=== PATIENT | female | born 2005 | race Two or more races ===

== ENCOUNTER 2024-09-15 09:24 | Observation (INO) | payer MEDICAID, SELFPAY ==
[2024-09-15 09:35] VITALS: BP 125/75; PULSE 84; PULSE 85; O2SAT 98
[2024-09-15 09:42] VITALS: BMI 31.1
--- NOTE | 2024-09-15 09:52 | XR_ITS ---
Examination: Complete OB ultrasound greater than 14 weeks Date and time of exam: September 15, 2024 1117 hours INDICATIONS: Decreased movement beginning 2 days ago Findings: Viable intrauterine single fetus with single amniotic sac presentation breech Cardiac motion 144 BPM Placenta posterior grade 0 Clinical consideration 3 vessel seen Amniotic fluid index 11.8 cm spine maternal right Cervix 5.4 cm Ovaries obscured by bowel gas. Composite estimated gestational age based on BPD, head circumference, abdominal circumference, femur length is 22 weeks 3 days Estimated weight 540 g. Survey of intracranial anatomy, spinal anatomy, abdominal anatomy, four-chamber heart performed with no abnormalities identified. Impression: Viable intrauterine gestation breech presentation.
== END 2024-09-15 12:21 | disposition home or self-care (01) ==
PROVIDERS: Admitting Provider Obstetrics & Gynecology; PCP Family Medicine; Visit Provider Obstetrics & Gynecology
DX: O36.8120 Decreased fetal movements, second trimester, not applicable or unspecified (principal); O32.1XX0 Maternal care for breech presentation, not applicable or unspecified; Z3A.22 22 weeks gestation of pregnancy
CPT/HCPCS: 59025; 59899; 76805

== ENCOUNTER 2024-11-11 21:56 | Observation (INO) | payer MEDICAID, SELFPAY ==
[2024-11-11 22:05] VITALS: BP 124/58; PULSE 107; RESP 18; RESP 99; TEMP 36.9
[2024-11-11 22:06] VITALS: BMI 34.0
[2024-11-11 22:09] VITALS: BP 124/58; PULSE 107
== END 2024-11-11 22:40 | disposition home or self-care (01) ==
PROVIDERS: Admitting Provider Obstetrics & Gynecology; Visit Provider Obstetrics & Gynecology
DX: O26.893 Other specified pregnancy related conditions, third trimester (principal); R10.30 Lower abdominal pain, unspecified; Z3A.30 30 weeks gestation of pregnancy
CPT/HCPCS: 59025; G0378

== ENCOUNTER 2025-03-01 03:11 | Emergency (ER) | payer MEDICAID, SELFPAY ==
[2025-03-01 03:13] VITALS: BP 120/75; PULSE 89; RESP 18; TEMP 36.6; O2SAT 100
--- NOTE | 2025-03-01 03:36 | EKG_ITS ---
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
[2025-03-01 03:46] VITALS: BP 107/60; PULSE 67; RESP 20; O2SAT 100
[2025-03-01 03:50] VITALS: BMI 30.2
--- NOTE | 2025-03-01 04:38 | PD.EDADULT ---
ED General RME/HPI General Chief complaint: General Adult/Misc Complain Stated complaint: CHEST AREA PAIN Time Seen by Provider: 03/01/25 03:48 Arrival date/time: 03/01/25 03:11 RME / HPI RME / HPI narrative: Dr. Mallory?s Main ED Evaluation: 20yo female with a history of DMI BIBA from home presents to the ED for a chief complaint of chest pain. Patient states she woke up having crushing diffuse chest pain. No radiation or migration. Patient denies having any cough, fever, chills, sweating, shortness of breath or any other associated symptoms. NKA. Related Data Home Medications ?Medication ?Instructions ?Recorded ?Confirmed Insulin Aspart * (NOVOLOG *) 18 unit subcut BID #0 units 09/30/14 09/29/19 aspirin 81 mg capsule 81 mg DAILY 09/15/24 09/15/24 [id number] 1 mg 2 tab PO DAILY 09/15/24 09/15/24 tablet Allergies Allergy/AdvReac Type Severity Reaction Status Date / Time No Known Allergies Allergy Verified 11/11/24 22:05 Review of Systems Review of Systems Systems Reviewed: All systems reviewed, normal except as documented ED Exam Narrative Physical exam: GENERAL APPEARANCE: alert and oriented x 4, well-developed, well-nourished, no acute distress VITALS: All vitals were reviewed and the pulse ox is 100% on room air, which is normal according to my interpretation. HEENT: Normocephalic, atraumatic; pupils equal, round, reactive to light; EOMI; mucous membranes pink, moist; oropharynx clear NECK: Supple LUNGS: CTABL; no wheezes, no rales, no rhonchi HEART: Regular rate, regular rhythm; normal S1, S2; no murmurs ABDOMEN: non distended; normal BS; soft, no tenderness, no guarding, no rebound; no masses, no organomegaly, no hernia BACK: no CVA tenderness EXTREMITIES: atraumatic; no edema NEUROLOGIC: awake; alert and oriented x4; cranial nerves II-XII grossly intact; no focal sensory or motor deficits PSYCHIATRIC: appropriate mood and affect SKIN: warm, dry, normal color; no rashes Course Quality Measures none Orders Category Date Time Status EKG (ED ONLY) *Do not use* NOW Care 03/01/25 03:36 Completed EKG (ED Only) Stat Exams 03/01/25 03:36 Ordered CBC Stat Lab 03/01/25 05:09 Received CMP [Comprehensive Metabolic Panel] Stat Lab 03/01/25 05:09 Received D-Dimer Stat Lab 03/01/25 05:09 Completed Troponin I Stat Lab 03/01/25 05:09 Received Acetaminophen Tab [Tylenol ES Tab] Med 03/01/25 04:49 Discontinued 1,000 mg PO X1 ONE Ibuprofen Tab [Motrin Tab] Med 03/01/25 04:48 Discontinued 600 mg PO X1 ONE Vital Signs Vital signs: Vital Signs Temperature 97.8 F 03/01/25 03:13 Pulse Rate 89 03/01/25 03:13 Respiratory Rate 18 03/01/25 03:13 Blood Pressure 120/75 03/01/25 03:13 Pulse Oximetry (%) 100 03/01/25 03:13 Oxygen Delivery Method Room Air 03/01/25 03:13 Discharge Plan Prescriptions/Referrals Prescriptions/Med Rec: No Action Insulin Aspart * (NOVOLOG *) 100 U/ML cartridge 18 unit Sub-Q BID Qty: 0 1 mg Tablet 2 tab PO DAILY aspirin 81 mg Capsule 81 mg DAILY Problem List Clinical Impression: Chest pain Patient/Caregiver Discharge Instructions Print Language: Japanese [facility] Narrative [facility] hospital course: Scribe Attestation: 03/01/25 - Liss Alvarado am scribing for and in the presence of Dr. Mallory. Wells criteria is 1.5 points, indicating the patient is at low risk. D-dimer ordered to r/o PE. Clinical Information Provided by patient Medical Records Reviewed [facility] (Per chart review, patient was seen here on 07/22/24 for diabetes mellitus.) Meds/Rx Considered, not Ordered None Labs/Rad/Tests considered, not Ordered None Chronic Illness/Social Conditions Add or document further as needed: History of DMI EKG EKG Interpretation narrative: EKG done at 0355, NSR, rate of 68, normal axis, no ectopy, no acute ischemia, according to my interpretation. Lab Interpretation Labs: interpreted by me (pending at sign out.) Imaging Imaging interpretation: none Medication Administration(s) Medication Administration History Discontinued Medications Acetaminophen (Acetaminophen 500 Mg Tablet) 1,000 mg PO X1 ONE Stop: 03/01/25 04:50 Last Admin: 03/01/25 05:02 Dose: Not Given Documented By: BD Non-Admin Reason: Patient Refused Ibuprofen (Ibuprofen Tab 600 Mg Tablet) 600 mg PO X1 ONE Stop: 03/01/25 04:49 Last Admin: 03/01/25 05:02 Dose: Not Given Documented By: BD Non-Admin Reason: Patient Refused see above Diagnosis Differential diagnosis: PE, pneumonia, pneumothorax Most likely dx, and/or detailed dx discussion: chest pain Dispositon Disposition: other (Signed out to Dr. Altamirano at 0600 pending labs.)
--- NOTE | 2025-03-01 04:57 | PC.NURSE ---
PHARMACY HOLDING MEDS FOR PT NOT DELIVERED 12/2024
--- NOTE | 2025-03-01 05:02 | PC.LAC ---
PT DID NOT WANT TYLENOL OR IBUPROFEN SHE STATED SHE IS NOT USE TO TAKING MEDICATION AND SHE GOT MEDICINE IN AMBULANCE PREFERS NOT TO TAKE MEDICATION
[2025-03-01 05:59] LABS: Basophils # (Auto) 0.1 Thou/mm3 (0.0-0.2); Basophils % (Auto) 1 % (0-2.5); Eosinophils # (Auto) 0.3 Thou/mm3 (0.0-0.5); Eosinophils % (Auto) 3 % (0-10); Hematocrit 33.9 % (36.0-46.0); Hemoglobin 10.9 g/dL (12.0-16.0); Immature Granulocytes % (Auto) 0 % (0-0); Immature Granulocytes Auto 0.03 Thou/mm3 (0.00-0.00); Lymphocytes # (Auto) 2.2 Thou/mm3 (1.0-4.8); Lymphocytes % (Auto) 23 % (10-50); Mean Corpuscular HGB Conc 32.2 g/dl (31.0-37.0); Mean Corpuscular Hemoglobin 25.1 pg (25.0-35.0); Mean Corpuscular Volume 78 fL (80-100); Monocytes # (Auto) 0.8 Thou/mm3 (0.0-0.8); Monocytes % (Auto) 8 % (0-12); Neutrophils # (Auto) 6.4 Thou/mm3 (1.8-7.7); Neutrophils % (Auto) 65 % (37-80); Nucleated Red Blood Cell % 0 /100 WBC (0); Platelet Count 314 Thou/mm3 (140-440); RDW Standard Deviation 52.4 fL (36.4-46.3); Red Blood Count 4.35 Miln/mm3 (4.00-5.20); White Blood Count 9.8 Thou/mm3 (3.6-11.0)
[2025-03-01 06:00] LABS: D-Dimer < 250 ng/mL (<600)
[2025-03-01 06:07] VITALS: BP 108/58; PULSE 76; RESP 20; O2SAT 99
[2025-03-01 06:08] LABS: Alanine Aminotransferase 52 U/L (10-49); Albumin, Serum 4.2 gm/dL (3.5-5.0); Albumin/Globulin Ratio 1.8 (1.2-2.2); Alkaline Phosphatase 87 U/L (46-116); Anion Gap 12 (7-16); Aspartate Amino Transferase 35 U/L (0-34); BUN/Creatinine Ratio 14 Ratio (12-20); Bilirubin,Total 0.3 mg/dL (0.3-1.2); Blood Urea Nitrogen 13 mg/dL (9-23); Calcium 8.7 mg/dL (8.3-10.6); Calcium (Corrected) 8.7 mg/dL (8.5-10.1); Chloride 106 mMol/L (98-107); Creatinine (Component) 0.9 mg/dL (0.6-1.3); Estimated Creatinine Clearance 89.3 mL/min (>60); Globulin 2.3 gm/dL (2.3-3.5); Glucose 306 mg/dL (74-106); Osmolality,Calculated 293 (275-295); Potassium 4.4 mMol/L (3.4-5.1); Sodium 141 mMol/L (136-145); Total Protein 6.5 gm/dL (5.7-8.2); Troponin I < 0.002 ng/mL (0.0-0.045); eGFR > 60 See Note
[2025-03-01 06:10] VITALS: PULSE 75
--- NOTE | 2025-03-01 06:36 | PD.EDADDENDU ---
Emergency Room Addendum Addendum Narrative: 0600: Care assumed from Dr. Mallory, the previous shift emergency physician. Past medical, surgical, social and family history reviewed. Vitals and home medications reviewed. I will assume the care of the patient at this time, pending remainder of labs and final disposition. Please refer to the emergency department record for history and examination from initial visit.? Physical exam by me shows patient under no acute distress at this time. 0630: Patient remains clinically stable throughout the emergency department visit. Re-assessment at the time of disposition demonstrates that the patient is in no acute distress. We reviewed all the results, analysis, and treatment plans. Patient is amenable to discharge. Strict return precautions were outlined. Patient was discharged in stable condition. Diagnosis: - Chest pain Results Objective Laboratory: Laboratory Last Values WBC 9.8 Thou/mm3 (3.6-11.0) 03/01/25 05:09 RBC 4.35 Miln/mm3 (4.00-5.20) 03/01/25 05:09 Hgb 10.9 g/dL (12.0-16.0) L 03/01/25 05:09 Hct 33.9 % (36.0-46.0) L 03/01/25 05:09 MCV 78 fL (80-100) L 03/01/25 05:09 MCH 25.1 pg (25.0-35.0) 03/01/25 05:09 MCHC 32.2 g/dl (31.0-37.0) 03/01/25 05:09 RDW Std Deviation 52.4 fL (36.4-46.3) H 03/01/25 05:09 Plt Count 314 Thou/mm3 (140-440) 03/01/25 05:09 Neut % (Auto) 65 % (37-80) 03/01/25 05:09 Lymph % (Auto) 23 % (10-50) 03/01/25 05:09 [place] % (Auto) 8 % (0-12) 03/01/25 05:09 Eos % (Auto) 3 % (0-10) 03/01/25 05:09 Baso % (Auto) 1 % (0-2.5) 03/01/25 05:09 Neut # (Auto) 6.4 Thou/mm3 (1.8-7.7) 03/01/25 05:09 Lymph # (Auto) 2.2 Thou/mm3 (1.0-4.8) 03/01/25 05:09 [place] # (Auto) 0.8 Thou/mm3 (0.0-0.8) 03/01/25 05:09 Eos # (Auto) 0.3 Thou/mm3 (0.0-0.5) 03/01/25 05:09 Baso # (Auto) 0.1 Thou/mm3 (0.0-0.2) 03/01/25 05:09 Immature Gran # (Auto) 0.03 Thou/mm3 (0.00-0.00) H 03/01/25 05:09 Absolute Nucleated RBC 0.00 Thou/mm3 (0.00-0.00) 03/01/25 05:09 Immature Gran % 0 % (0-0) 03/01/25 05:09 Nucleated RBC % 0 /100 WBC (0) 03/01/25 05:09 D-Dimer < 250 ng/mL (<600) 03/01/25 05:09 Sodium 141 mMol/L (136-145) 03/01/25 05:09 Potassium 4.4 mMol/L (3.4-5.1) 03/01/25 05:09 Chloride 106 mMol/L (98-107) 03/01/25 05:09 Carbon Dioxide 23.0 mMol/L (20.0-31.0) 03/01/25 05:09 Anion Gap 12 (7-16) 03/01/25 05:09 BUN 13 mg/dL (9-23) 03/01/25 05:09 Creatinine 0.9 mg/dL (0.6-1.3) 03/01/25 05:09 Estim Creat Clear Calc 89.3 mL/min (>60) 03/01/25 05:09 eGFR > 60 See Note (60-) 03/01/25 05:09 BUN/Creatinine Ratio 14 Ratio (12-20) 03/01/25 05:09 Glucose 306 mg/dL (74-106) H 03/01/25 05:09 Calculated Osmolality 293 (275-295) 03/01/25 05:09 Calcium 8.7 mg/dL (8.3-10.6) 03/01/25 05:09 Corrected Calcium 8.7 mg/dL (8.5-10.1) 03/01/25 05:09 Total Bilirubin 0.3 mg/dL (0.3-1.2) 03/01/25 05:09 AST 35 U/L (0-34) H 03/01/25 05:09 ALT 52 U/L (10-49) H 03/01/25 05:09 Alkaline Phosphatase 87 U/L (46-116) 03/01/25 05:09 Troponin I < 0.002 ng/mL (0.0-0.045) 03/01/25 05:09 Total Protein 6.5 gm/dL (5.7-8.2) 03/01/25 05:09 Albumin 4.2 gm/dL (3.5-5.0) 03/01/25 05:09 Globulin 2.3 gm/dL (2.3-3.5) 03/01/25 05:09 Albumin/Globulin Ratio 1.8 (1.2-2.2) 03/01/25 05:09
== END 2025-03-01 06:42 | disposition home or self-care (01) ==
PROVIDERS: Emergency Medicine; Emergency Provider Emergency Medicine; PCP Family Medicine
DX: R07.9 Chest pain, unspecified (principal); E10.9 Type 1 diabetes mellitus without complications
CPT/HCPCS: 36415; 80053; 84484; 85025; 85379; 93005; 99283

== ENCOUNTER 2025-03-15 21:16 | Emergency (ER) | payer MEDICAID, SELFPAY ==
[2025-03-15 21:18] VITALS: BMI 30.2
[2025-03-15 21:30] VITALS: BP 112/74; PULSE 88; RESP 16; TEMP 36.7; O2SAT 98
--- NOTE | 2025-03-15 21:40 | XR_ITS ---
Examination: PA chest single view TECHNIQUE: Upright PA chest single view Date and time: March 15, 2025 2155 hours INDICATIONS: Chest pain beginning 2 weeks ago SOB today FINDINGS: Normal heart size Lungs are clear The osseous structures are intact IMPRESSION: No active disease
--- NOTE | 2025-03-15 21:41 | PD.EDRME ---
Rapid Medical Screening Exam RME Arrival date/time: 03/15/25 21:16 Chief Complaint: Chest Pain Time Seen by Provider: 03/15/25 21:37 Vital signs: Vital Signs Temperature 98.1 F 03/15/25 21:30 Pulse Rate 88 03/15/25 21:30 Respiratory Rate 16 03/15/25 21:30 Blood Pressure 112/74 03/15/25 21:30 Pulse Oximetry (%) 98 03/15/25 21:30 Oxygen Delivery Method Room Air 03/15/25 21:30 RME Narrative: 20-year-old female patient substernal chest pain onset of symptoms for 30 minutes severity 7 out of 10 described as crushing. Worse with deep breathing. Radiating to the back
[2025-03-15 22:18] LABS: Basophils # (Auto) 0.1 Thou/mm3 (0.0-0.2); Basophils % (Auto) 1 % (0-2.5); Eosinophils # (Auto) 0.2 Thou/mm3 (0.0-0.5); Eosinophils % (Auto) 2 % (0-10); Hemoglobin 10.9 g/dL (12.0-16.0); Immature Granulocytes % (Auto) 0 % (0-0); Immature Granulocytes Auto 0.02 Thou/mm3 (0.00-0.00); Lymphocytes # (Auto) 3.6 Thou/mm3 (1.0-4.8); Lymphocytes % (Auto) 38 % (10-50); Mean Corpuscular HGB Conc 32.1 g/dl (31.0-37.0); Mean Corpuscular Hemoglobin 25.3 pg (25.0-35.0); Mean Corpuscular Volume 79 fL (80-100); Monocytes # (Auto) 0.6 Thou/mm3 (0.0-0.8); Monocytes % (Auto) 7 % (0-12); Neutrophils % (Auto) 53 % (37-80); Nucleated Red Blood Cell % 0 /100 WBC (0); Platelet Count 325 Thou/mm3 (140-440); RDW Standard Deviation 53.7 fL (36.4-46.3); White Blood Count 9.5 Thou/mm3 (3.6-11.0)
[2025-03-15 22:20] LABS: Collection Type, Urine Clean Catch
[2025-03-15 22:32] LABS: HCG Qualitative,Urine Negative
[2025-03-15 22:34] LABS: D-Dimer < 250 ng/mL (<600)
[2025-03-15 22:35] LABS: Partial Thromboplastin Time 25.2 Seconds (22.0-36.0); Prothrombin Time 10.8 Seconds (9.0-12.2)
[2025-03-15 22:43] LABS: Bilirubin,Urine Negative (Negative); Blood,Urine Negative (Negative); Clarity,Urine Turbid (Clear/Hazy); Color,Urine Lt-Yellow (Lt Yel-Yel); Glucose, Urine Negative (Negative); Ketones,Urine Negative (Negative); Leukocyte Esterase,Urine Positive (Negative); Nitrite,Urine Negative (Negative); PH,Urine 5.5 (5.0-7.0); Protein,Urine Negative (Neg - Trace); RBC,Urine 3 /hpf (0-3); Specific Gravity,Urine 1.022 (1.001-1.035); Urobilinogen,Urine Negative mg/dL (0.0-1.0)
[2025-03-15 22:43] LABS: Alanine Aminotransferase 48 U/L (10-49); Albumin, Serum 4.4 gm/dL (3.5-5.0); Albumin/Globulin Ratio 1.8 (1.2-2.2); Alkaline Phosphatase 89 U/L (46-116); Anion Gap 7 (7-16); Aspartate Amino Transferase 32 U/L (0-34); BUN/Creatinine Ratio 13 Ratio (12-20); Bilirubin,Total 0.3 mg/dL (0.3-1.2); Blood Urea Nitrogen 9 mg/dL (9-23); Calcium 9.7 mg/dL (8.3-10.6); Calcium (Corrected) 9.7 mg/dL (8.5-10.1); Carbon Dioxide 24.4 mMol/L (20.0-31.0); Chloride 111 mMol/L (98-107); Creatinine (Component) 0.7 mg/dL (0.6-1.3); Estimated Creatinine Clearance 114.8 mL/min (>60); Globulin 2.4 gm/dL (2.3-3.5); Glucose 60 mg/dL (74-106); Osmolality,Calculated 279 (275-295); Potassium 3.6 mMol/L (3.4-5.1); Sodium 142 mMol/L (136-145); Total Protein 6.8 gm/dL (5.7-8.2); Troponin I < 0.002 ng/mL (0.0-0.045); eGFR > 60 See Note
[2025-03-15 22:44] LABS: Culture Indicated,Urine Contaminated; Squamous Epithelial Cell,Urine 20 /hpf (0-5); WBC,Urine 19 /hpf (0-5)
[2025-03-16 02:38] VITALS: RESP 16
[2025-03-16 02:58] LABS: Lipase 34 U/L (12-53)
--- NOTE | 2025-03-16 05:40 | PD.EDCHEST ---
ED Chest Pain RME/HPI General Chief Complaint: Chest Pain Stated Complaint: CHEST AREA PAIN Time Seen by Provider: 03/15/25 21:37 Arrival date/time: 03/15/25 21:16 RME / HPI RME / HPI narrative: 20-year-old female patient substernal chest pain onset of symptoms for 30 minutes severity 7 out of 10 described as crushing. Worse with deep breathing. Radiating to the back DR. VALLE MAIN ED EVALUATION: 20 y/o female with Hx of Type I DM and SHx of appendectomy presents to ED c/o sudden chest pain x approximately 35 minutes. Patient was in [place] visiting her cousin leaving back home to [place] when she experienced severe chest pain. Denies fever, cough, runny nose, nausea, vomiting, diarrhea, bloody stool, dysuria, hematuria, and abnormal vaginal bleeding. Also denies smoking, alcohol and recreational drug use. No other concerns or complaints expressed at this time. Related Data Home Medications ?Medication ?Instructions ?Recorded ?Confirmed Insulin Aspart * (NOVOLOG *) 18 unit subcut BID #0 units 09/30/14 09/29/19 aspirin 81 mg capsule 81 mg DAILY 09/15/24 09/15/24 [id number] 1 mg 2 tab PO DAILY 09/15/24 09/15/24 tablet Allergies Allergy/AdvReac Type Severity Reaction Status Date / Time No Known Allergies Allergy Verified 11/11/24 22:05 Review of Systems Review of Systems Systems Reviewed: All systems reviewed, normal except as documented Past Medical History Past Medical History ENDOCRINE: Positive Diabetes Mellitus Type 1 ED Exam Narrative Physical exam: GEN. APPEARANCE: The patient is alert awake oriented X-3 in no distress, lying down comfortably, does not look ill/toxic. Patient has good eye contact. Patient is cooperative. VITALS: All vitals were reviewed and the pulse ox is % on room air which is normal according to my interpretation. HEENT: Normocephalic, atraumatic. Pupils are equal and reactive. Oral mucosa is moist. Patent Nares NECK: Supple, nontender, no thyromegaly, no meningismus, no JVD CHEST: Symmetrical, atraumatic, and with equal expansion , Nontender on palpation no deformity and no crepitus. CARDIOVASCULAR: Heart regular rhythm no murmur or gallop rub or extra beats. LUNGS: Clear to auscultation bilaterally with symmetrical chest rise. No laboring tachypnea or wheezing. No intercostal subcostal retraction. No rales and no rhonchi. ABDOMEN: Soft, flat, nontender to palpation, no guarding or rebound tenderness. There are no abnormal masses palpated. Active and normal bowel sounds. EXTREMITIES: Nontender. No edema. No cyanosis. Patient is able to move all 4 extremities well, with full ROM and good CSM. SKIN: Warm and dry, no jaundice or rashes noted. NEURO: Patient is PAULA x 4, Cranial nerves II through XII grossly intact. There is no focal neurologic deficits noted. GCS is 15, PNS and MOBILITY SPECIALIST appear grossly intact. PSYCHIATRIC: Patient is in normal mood and affect. Course Course Course Narrative: CXR is ordered for determining the etiology of chest pain. Quality Measures none Orders Category Date Time Status EKG (ED ONLY) *Do not use* NOW Care 03/15/25 21:16 Completed Fingerstick [Bedside Blood Glucose] NOW Care 03/15/25 21:36 Completed EKG (ED Only) Stat Exams 03/15/25 21:16 Ordered XR chest 1V Stat Exams 03/15/25 21:40 Completed CBC Stat Lab 03/15/25 21:49 Completed Comprehensive Metabolic Panel Stat Lab 03/15/25 21:49 Completed D-Dimer Stat Lab 03/15/25 21:49 Completed HCG Qualitative,Urine Stat Lab 03/15/25 22:15 Completed Lipase Stat Lab 03/16/25 02:15 Completed Partial Thromboplastin Time Stat Lab 03/15/25 21:49 Completed Prothrombin Time with INR Stat Lab 03/15/25 21:49 Completed Troponin I Stat Lab 03/15/25 21:49 Completed Urinalysis, C/S if Indicated Stat Lab 03/15/25 22:15 Completed Acetaminophen Tab [Tylenol ES Tab] Med 03/16/25 02:32 Discontinued 500 mg PO X1 ONE Vital Signs Vital signs: Vital Signs Temperature 98.1 F 03/15/25 21:30 Pulse Rate 88 03/15/25 21:30 Respiratory Rate 16 03/15/25 21:30 Blood Pressure 112/74 03/15/25 21:30 Pulse Oximetry (%) 98 03/15/25 21:30 Oxygen Delivery Method Room Air 03/15/25 21:30 Chest Pain MDM Narrative MDM Narrative:: Scribe Attestation: Carmelita Alvarado, am scribing for and in the presence of Dr. Valle. Provider Notation: Although this document has been carefully reviewed, there may still be some phonetic and other typographical errors.? These errors are purely grammatical due to imperfections in the software program and should not be construed in any way to? compromise the substance of the patient's medical care during this visit. No acute hematological or metabolic abnormality. Troponin I not elevated. D-Dimer is normal. UA contaminated, but not . CXR is unremarkable. Patient declined further intervention and diagnostic testing. Will not order repeat Troponin I. Patient wants to go home. Patient data External records reviewed:: [facility] previous records (Reviewed prior ED records from 03/01/25. Patient was seen for Chest pain.) Clinical information provided by:: patient Social determinants that could affect healthcare access:: none Patient has the following chronic illnesses:: Type I DM How is presenting disease/condition affected by chronic disease/condition?: exacerbated by Evaluation data The following diagnostics were reviewed and interpreted by me:: lab results, radiology exam(s) and EKG tracing(s) Lab and/or radiology exams considered but not ordered:: None Interpretation Summary: RADIOLOGY Chest X-Ray: FINDINGS: Normal heart size Lungs are clear The osseous structures are intact IMPRESSION: No active disease Medications / Prescriptions Medications or Prescriptions considered but not ordered:: None Medication administrations:: Medication Administration History Discontinued Medications Acetaminophen (Acetaminophen 500 Mg Tablet) 500 mg PO X1 ONE Stop: 03/16/25 02:33 Last Admin: 03/16/25 02:37 Dose: Not Given Documented By: CVL Non-Admin Reason: Patient Refused See above if any. Consultations Consultation(s) initiated? (list below): No Diagnosis Chest Pain Differential Diagnosis: pneumothorax, stable angina, unstable angina pectoris, atypical chest pain, st elevation myocardial infarction, costochondritis, chest pain and biliary colic Most likely diagnosis given after review of the tests above:: Chest pain Admission Indicated Admission indicated?: not indicated Explain why admission is indicated or not indicated:: Patient does not meet admission criteria. Admission Request Was there a request for admission?: No Disposition Plan Disposition Plan: Discharge Discharge Attestation Discharge Attestation: The patient and all family members were given an opportunity to ask questions and understood the discharge instructions. Discharge instructions specifically effects, indications for sooner follow up or return to the emergency department, and the expected course of current diagnosis. Patient condition: Stable Discharge Plan Plan Patient Disposition: HOME (Self Care) Prescriptions/Referrals Prescriptions/Med Rec: No Action Insulin Aspart * (NOVOLOG *) 100 U/ML cartridge 18 unit Sub-Q BID Qty: 0 1 mg Tablet 2 tab PO DAILY aspirin 81 mg Capsule 81 mg DAILY Referrals: Vadim Reeves MD [Primary Care Provider] - In 1 week Problem List Clinical Impression: Chest pain Patient/Caregiver Discharge Instructions Discharge Activity: activity as tolerated Education Materials: ED Chest Pain, Uncertain Cause Additional Instructions: It is important that you follow-up with your primary care doctor for further evaluation and workup of her symptoms. It is important that you discuss this as you may benefit from a toolroom clerk or contracting specialist evaluation. Return immediately if symptoms recur or new symptoms of concern. Print Language: Hebrew Stand Alone Forms: [place] Award Info., Patient Portal Info Letter
== END 2025-03-16 02:40 | disposition home or self-care (01) ==
PROVIDERS: Nurse Practitioner Family; Emergency Provider Emergency Medicine; PCP Family Medicine
DX: R07.2 Precordial pain (principal); R06.02 Shortness of breath; R94.31 Abnormal electrocardiogram [ECG] [EKG]
CPT/HCPCS: 36415; 71045; 80053; 81001; 81025; 83690; 84484; 85025; 85379; 85610; 85730; 93005; 99283

== ENCOUNTER 2025-04-22 06:29 | Emergency (ER) | payer MEDICAID, SELFPAY ==
[2025-04-22 06:30] VITALS: BP 127/100; PULSE 84; RESP 19; TEMP 36.9; O2SAT 100
[2025-04-22 06:32] VITALS: BMI 30.2
[2025-04-22 06:33] VITALS: PULSE 102; O2SAT 98; BMI 30.2
--- NOTE | 2025-04-22 06:33 | XR_ITS ---
Examination: CT abdomen with intravenous contrast CT pelvis with intravenous contrast 2-D coronal reconstructions 2-D sagittal reconstructions Date and time of exam:2024 hr 0829 hrs. Indications: Upper abdominal pain beginning one week ago.. CTDI: vol (mGy) 9.69. DLP: (mGycm) 570. Technique: Multiple axial sections of the abdomen and pelvis have been obtained. 64 slice high-resolution scanner used. 3 mm axial sections have been obtained, post intravenous injection 60 cc Isovue-370. 2-D sagittal, coronal reconstructions obtained. Low dose protocols were performed. One or more of the following dose reduction techniques were used; automated exposure control, adjustment of the mA and/or KV according to patient size, use of iterative reconstruction technique. Findings: No focal liver or splenic lesions Gastric mucosa, axial image 73 is thickened in the gastric antrum No gallstones Negative for pancreatitis. Small benign right renal cyst. No renal or ureteral calculi, no hydronephrosis Aorta normal size. The appendix is not visualized. No pericecal inflammatory change. No uterine or adnexal mass. No free fluid in the pelvis. Urinary bladder is intact. Osseous structures are intact Impression: Findings suspicious for antral gastritis. Negative for pancreatitis. No renal or ureteral calculi, no hydronephrosis No CT findings of appendicitis bowel obstruction or diverticulitis.
--- NOTE | 2025-04-22 06:34 | XR_ITS ---
Examination: Abdomen sonogram, Limited Date and time of exam: April 22, 2025, 0735 hrs. Indications: Epigastric pain beginning 2 weeks ago Technique: Real-time goldsmith scale transabdominal sonographic images of the upper abdomen obtained. Findings: Gallstones. Gallbladder wall 0.3 cm no stones edema Common bile duct 0.5 cm no stones Pancreatic head 2.8 cm Liver 15.9 cm fatty infiltration. Normal hepatopedal portal venous flow Patent IVC Impression: Cholelithiasis, negative for cholecystitis
--- NOTE | 2025-04-22 06:34 | PD.EDABDPN ---
ED Abdominal Pain RME/HPI General Chief Complaint: Abdominal Pain Stated complaint: ABDOMINAL PAIN Time seen by provider: 04/22/25 06:33 Arrival date/time: 04/22/25 06:29 Limitations: no limitations RME / HPI RME / HPI narrative: DR. DISLA MAIN ED EVALUATION: 20-year-old female with past medical history of type 1 diabetes mellitus (on Humalog), appendectomy, and section 3 months ago presents to the Emergency Department [facility] with complaint of diffuse abdominal pain but more in the epigastric area radiating to the left and right upper quadrants. Pain began this morning and acutely worsened, waking the patient from sleep approximately 45 minutes [employer]. She rates the pain as 8/10. Patient reports having intermittent abdominal discomfort since giving 3 months ago. Denies dysuria, constipation, nausea, vomiting, soda or energy drink intake. Reports no drug, tobacco, or alcohol use. Related Data Home Medications ?Medication ?Instructions ?Recorded ?Confirmed Insulin Aspart * (NOVOLOG *) 18 unit subcut BID #0 units 09/30/14 09/29/19 aspirin 81 mg capsule 81 mg DAILY 09/15/24 09/15/24 [id number] 1 mg 2 tab PO DAILY 09/15/24 09/15/24 tablet Previous Rx's ?Medication ?Instructions ?Recorded bisacodyl 10 mg rectal suppository 10 mg MS QDAY PRN constipation #3 04/22/25 (Dulcolax (bisacodyl)) ea omeprazole 20 mg capsule,delayed 20 mg PO QDAY #14 caps 04/22/25 release polyethylene glycol 3350 17 gram 17 g PO QDAY #14 ea 04/22/25 oral powder packet (Miralax) Allergies Allergy/AdvReac Type Severity Reaction Status Date / Time No Known Allergies Allergy Verified 11/11/24 22:05 Review of Systems Review of Systems Systems Reviewed: All systems reviewed, normal except as documented Past Medical History Past Medical History ENDOCRINE: Positive Diabetes Mellitus Type 1 Social History SMOKING STATUS: Never smoker SUBSTANCE USE: does not use ALCOHOL: Never Past Medical History Comments PMH COMMENT: type 1 diabetes mellitus (on Humalog), appendectomy, and section 3 months ago ED Exam General Limitations: Present no limitations General appearance: Present alert and in distress (looks uncomfortable) Head Head exam: Present atraumatic, normocephalic and normal inspection Eye Eye exam: Present normal appearance, PERRL and EOMI ENT ENT exam: Present normal exam, normal oropharynx and mucous membranes moist Neck Neck exam: Present normal inspection, full ROM and trachea midline Chest Chest inspection: Present normal inspection and symmetric chest wall rise Respiratory Respiratory exam: Present normal lung sounds bilaterally Cardiovascular Cardiovascular exam: Present regular rate, normal rhythm and normal heart sounds Abdominal Exam Abdominal exam: Present soft, tenderness (diffuse tenderness) and normal bowel sounds Extremities Exam Extremities exam: Present normal inspection and full ROM Back Exam Back exam: Present normal inspection and full ROM Neurological Exam Neurological exam: Present alert, oriented X3 and CN II-XII intact Psychiatric Psychiatric exam: Present normal affect and normal mood Skin Skin exam: Present warm, dry, intact and normal color Course Quality Measures none Orders Category Date Time Status CT Screening NOW Care 04/22/25 06:[address] abdomen pelvis w con Stat Exams 04/22/25 06:33 Completed US abdomen limited Stat Exams 04/22/25 06:34 Completed CBC Stat Lab 04/22/25 07:00 Completed CMP [Comprehensive Metabolic Panel] Stat Lab 04/22/25 07:00 Completed Drug Screen,Urine Stat Lab 04/22/25 09:34 Completed HCG,Qualitative Serum Stat Lab 04/22/25 07:00 Completed Lipase Stat Lab 04/22/25 07:00 Completed UA, C/S IF [Urinalysis, C/S if Indicated] Stat Lab 04/22/25 09:34 Completed Urine Culture Stat Lab 04/22/25 09:34 Received Lidocaine 2% Viscous [Xylocaine 2% Viscous] Med 04/22/25 06:35 Discontinued 15 ml PO X1 ONE Milk Of Magnesia Susp [Mom Susp] Med 04/22/25 06:35 Discontinued 30 ml PO X1 ONE Vital Signs Vital signs: Vital Signs Temperature 98.4 F 04/22/25 06:30 Pulse Rate 84 04/22/25 06:30 Respiratory Rate 19 04/22/25 06:30 Blood Pressure 127/100 H 04/22/25 06:30 Pulse Oximetry (%) 100 04/22/25 06:30 Oxygen Delivery Method Room Air 04/22/25 06:30 Abdominal Pain MDM MDM Narrative MDM Narrative:: Patient p/w diffuse abd pain on/off for 3 months. VS and exam as listed. Concern for pancreatitis, cholelithiasis, cholecystitis, intra-abdominal abscess given patient's recent among others. Ordered labs right upper quadrant ultrasound, CT abdomen pelvis with contrast as well as medications for symptom relief. Labs without acute hematologic abnormality, patient does have a new transaminitis, AST 93, ALT 99, T. bili normal, alk phos 120 patient's not , lipase not elevated. CT abdomen pelvis with evidence of constipation, gastritis. Right upper quadrant ultrasound with evidence of gallstones, no evidence of choledocholithiasis or cholecystitis. Urinalysis without evidence of infection Reevaluation, patient hemodynamically stable not in distress symptoms completely resolved, tolerating oral intake. Will discharge to home with close return precautions follow-up with primary care doctor as well as recommendation that she sees a surgeon for management of her symptomatic cholelithiasis. Xiomara Alvarado am scribing for and in the presence of Dr. Disla. Patient data External records reviewed:: [facility] previous records and EMS form Clinical information provided by:: patient and EMS Social determinants that could affect healthcare access:: none Patient has the following chronic illnesses:: type 1 diabetes mellitus (on Humalog), appendectomy, and section 3 months ago How is presenting disease/condition affected by chronic disease/condition?: exacerbated by Evaluation data The following diagnostics were reviewed and interpreted by me:: lab results and radiology exam(s) Lab and/or radiology exams considered but not ordered:: none Interpretation Summary: Constipation, cholelithiasis, gastritis Medications / Prescriptions Medications or Prescriptions considered but not ordered:: none Medication administrations:: Medication Administration History Discontinued Medications Lidocaine HCl (Lidocaine Viscous 2% 15 Ml Udc) 15 ml PO X1 ONE Stop: 04/22/25 06:36 Last Admin: 04/22/25 08:22 Dose: 15 ml Documented By: KATE Magnesium Hydroxide (Milk Of Magnesia Susp 30 Ml Udc) 30 ml PO X1 ONE; Protocol Stop: 04/22/25 06:36 Last Admin: 04/22/25 08:22 Dose: 30 ml Documented By: KATE see above Consultations Consultation(s) initiated? (list below): No Diagnosis Differential diagnosis abdominal pain: other (Postoperative adhesions or ileus, diabetic gastroparesis, and biliary colic or cholelithiasis.) Most likely diagnosis given after review of the tests above:: Gastritis, constipation, cholelithiasis Admission Indicated Admission indicated?: not indicated Admission Request Was there a request for admission?: No Disposition Plan Disposition Plan: Discharge Discharge Attestation Discharge Attestation: The patient and all family members were given an opportunity to ask questions and understood the discharge instructions. Discharge instructions specifically effects, indications for sooner follow up or return to the emergency department, and the expected course of current diagnosis. Patient condition: Stable Discharge Plan Plan Patient Disposition: HOME (Self Care) Prescriptions/Referrals Prescriptions/Med Rec: New polyethylene glycol 3350 [Miralax] 17 gram powder in packet 17 g PO QDAY Qty: 14 0RF bisacodyl [Dulcolax (bisacodyl)] 10 mg suppository 10 mg MS QDAY PRN (Reason: constipation) Qty: 3 0RF omeprazole 20 mg capsule,delayed release(DR/EC) 20 mg PO QDAY Qty: 14 0RF No Action Insulin Aspart * (NOVOLOG *) 100 U/ML cartridge 18 unit Sub-Q BID Qty: 0 1 mg Tablet 2 tab PO DAILY aspirin 81 mg Capsule 81 mg DAILY Referrals: Vadim Reeves MD [Primary Care Provider] - In 1 week Problem List Clinical Impression: Cholelithiasis, Constipation, Fatty liver, Gastritis Patient/Caregiver Discharge Instructions Education Materials: ED Constipation (Adult), ED Gallstones with Biliary Colic, ED PEPTIC ULCER vs GASTRITIS Additional Instructions: Your workup today showed that you have gallstones in your gallbladder, gastritis as well as constipation. I have sent you medications for management of constipation as well as gastritis. It is important that you avoid foods that could exacerbate your gastritis and gallstone pain including spicy food, soda, excessively hot food, fatty food or heavy meals. I recommend that you follow-up with a surgeon establish care for management of your symptomatic cholelithiasis Print Language: Maori Stand Alone Forms: [facility] Award Info., Patient Portal Info Letter
[2025-04-22 06:48] VITALS: BP 122/69; PULSE 81; RESP 19; O2SAT 100
[2025-04-22 07:23] VITALS: BP 117/70; PULSE 84; RESP 17; TEMP 36.9; O2SAT 100
--- NOTE | 2025-04-22 07:26 | PC.NURSE ---
pt to ER with CO of epigastric pain for 2 weeks worst x1 hour. with nausea no vomiting or diarrhea. US at bedside doing exam
[2025-04-22 07:38] LABS: Basophils # (Auto) 0.0 Thou/mm3 (0.0-0.2); Basophils % (Auto) 1 % (0-2.5); Eosinophils # (Auto) 0.1 Thou/mm3 (0.0-0.5); Eosinophils % (Auto) 1 % (0-10); Hematocrit 34.8 % (36.0-46.0); Hemoglobin 11.5 g/dL (12.0-16.0); Immature Granulocytes Auto 0.02 Thou/mm3 (0.00-0.00); Lymphocytes # (Auto) 2.2 Thou/mm3 (1.0-4.8); Lymphocytes % (Auto) 35 % (10-50); Mean Corpuscular HGB Conc 33.0 g/dl (31.0-37.0); Mean Corpuscular Hemoglobin 26.1 pg (25.0-35.0); Mean Corpuscular Volume 79 fL (80-100); Monocytes # (Auto) 0.9 Thou/mm3 (0.0-0.8); Monocytes % (Auto) 15 % (0-12); Neutrophils # (Auto) 3.0 Thou/mm3 (1.8-7.7); Neutrophils % (Auto) 48 % (37-80); Nucleated Red Blood Cell # 0.00 Thou/mm3 (0.00-0.00); Nucleated Red Blood Cell % 0 /100 WBC (0); Platelet Count 291 Thou/mm3 (140-440); RDW Standard Deviation 41.6 fL (36.4-46.3); Red Blood Count 4.40 Miln/mm3 (4.00-5.20); White Blood Count 6.2 Thou/mm3 (3.6-11.0)
[2025-04-22 07:58] LABS: Alanine Aminotransferase 99 U/L (10-49); Albumin, Serum 4.2 gm/dL (3.5-5.0); Albumin/Globulin Ratio 1.6 (1.2-2.2); Alkaline Phosphatase 120 U/L (46-116); Anion Gap 11 (7-16); Aspartate Amino Transferase 93 U/L (0-34); BUN/Creatinine Ratio 14 Ratio (12-20); Bilirubin,Total 0.3 mg/dL (0.3-1.2); Blood Urea Nitrogen 11 mg/dL (9-23); Calcium 9.2 mg/dL (8.3-10.6); Calcium (Corrected) 9.2 mg/dL (8.5-10.1); Carbon Dioxide 24.1 mMol/L (20.0-31.0); Chloride 108 mMol/L (98-107); Creatinine (Component) 0.8 mg/dL (0.6-1.3); Estimated Creatinine Clearance 100.5 mL/min (>60); Globulin 2.7 gm/dL (2.3-3.5); Glucose 83 mg/dL (74-106); Lipase 32 U/L (12-53); Osmolality,Calculated 283 (275-295); Potassium 3.7 mMol/L (3.4-5.1); Sodium 143 mMol/L (136-145); Total Protein 6.9 gm/dL (5.7-8.2); eGFR > 60 See Note
[2025-04-22 08:04] LABS: HCG,Qualitative Serum Negative
[2025-04-22] MEDS: Milk Of Magnesia Susp 30 ML UDC PO (08:22)
[2025-04-22] MEDS: LIDOCAINE VISCOUS 2% 15 ML UDC PO (08:22)
--- NOTE | 2025-04-22 08:23 | PC.NURSE ---
pt gone to CT
[2025-04-22 09:43] LABS: Collection Type, Urine Clean Catch; RBC,Urine 0 /hpf (0-3)
[2025-04-22 09:57] VITALS: BP 128/74; PULSE 84; RESP 19; TEMP 36.9; O2SAT 100
[2025-04-22 10:01] LABS: Amphetamine/Methamp Scrn,U Negative (Negative); Barbiturate Screen,Urine Negative (Negative); Benzodiazepines Screen,Urine Negative (Negative); Benzoylecgonine Screen, Ur Negative (Negative); Fentanyl Screen,Urine Negative (Negative); Opiate Screen,Urine Negative (Negative); THC Screen,Urine Negative (Negative)
[2025-04-22 10:02] LABS: Bacteria,Urine 1+; Bilirubin,Urine Negative (Negative); Blood,Urine Negative (Negative); Clarity,Urine Clear (Clear/Hazy); Color,Urine Lt-Yellow (Lt Yel-Yel); Glucose, Urine Trace (Negative); Ketones,Urine Negative (Negative); Leukocyte Esterase,Urine Negative (Negative); Nitrite,Urine Negative (Negative); PH,Urine 8.0 (5.0-7.0); Protein,Urine Trace (Neg - Trace); Squamous Epithelial Cell,Urine 5 /hpf (0-5); Urobilinogen,Urine Negative mg/dL (0.0-1.0); WBC,Urine 1 /hpf (0-5)
[2025-04-22 10:16] LABS: Culture Indicated,Urine Yes; Specific Gravity,Urine 1.015 (1.001-1.035)
== END 2025-04-22 10:59 | disposition home or self-care (01) ==
PROVIDERS: Emergency Provider Emergency Medicine; PCP Family Medicine
DX: K80.20 Calculus of gallbladder without cholecystitis without obstruction (principal); K59.00 Constipation, unspecified; K76.0 Fatty (change of) liver, not elsewhere classified; K29.70 Gastritis, unspecified, without bleeding
CPT/HCPCS: 36415; 74177; 76705; 80053; 80307; 81001; 83690; 84703; 85025; 87086; 99283; A4649; J3490; Q9967; A9270

== ENCOUNTER 2025-05-26 15:50 | Emergency (ER) | payer MEDICAID, SELFPAY ==
[2025-05-26 15:51] VITALS: BMI 30.2
[2025-05-26 16:09] VITALS: BP 105/64; PULSE 82; RESP 16; TEMP 37.1; O2SAT 100
--- NOTE | 2025-05-26 16:44 | PD.EDRME ---
Rapid Medical Screening Exam E Arrival date/time: 05/26/25 15:50 This is a 20-year-old female that comes into the emergency room with complaints of abdominal pain. Patient has been diagnosed with cholelithiasis. Patient reports nausea no vomiting. Patient reports that she is a type I diabetic. Patient denies any fever or diarrhea. I have greeted and performed a focused initial assessment of this patient. Initial appropriate labs ordered at this time. A comprehensive ED assessment and evaluation of the patient and analysis of all test and completion of medical decision making process will be conducted by additional ED provider. Chief Complaint: Abdominal Pain Time Seen by Provider: 05/26/25 16:14 Vital signs: Vital Signs Temperature 98.7 F 05/26/25 16:09 Pulse Rate 82 05/26/25 16:09 Respiratory Rate 16 05/26/25 16:09 Blood Pressure 105/64 05/26/25 16:09 Pulse Oximetry (%) 100 05/26/25 16:09 Oxygen Delivery Method Room Air 05/26/25 16:09
[2025-05-26] MEDS: HYDROcodone/APAP 5/325 TABLET 1 TAB PO (16:48)
[2025-05-26] MEDS: ONDANSETRON ODT 4 MG TABRAP PO (16:48)
[2025-05-26 17:13] LABS: Collection Type, Urine Voided
--- NOTE | 2025-05-26 17:26 | XR_ITS ---
Examination: Abdomen sonogram, Limited Date and time of exam: May 26, 2025, 1929 hrs. Indications: Right upper abdominal pain beginning 5 hours ago Technique: Real-time goldsmith scale transabdominal sonographic images of the upper abdomen obtained. Findings: Cholelithiasis, gallbladder wall 0.3 cm no edema Common bile duct 0.4 cm Pancreatic head 1.9 cm Liver 13.6 cm fatty infiltration no focal liver lesions Normal hepatopedal portal venous oh Patent IVC. 15 mm right renal cyst. Impression: Cholelithiasis, negative for cholecystitis
[2025-05-26 17:30] LABS: Bilirubin,Urine Negative (Negative); Blood,Urine Negative (Negative); Clarity,Urine Clear (Clear/Hazy); Color,Urine Lt-Yellow (Lt Yel-Yel); Culture Indicated,Urine Not Indicated; Glucose, Urine Negative (Negative); Ketones,Urine Negative (Negative); Leukocyte Esterase,Urine Negative (Negative); Nitrite,Urine Negative (Negative); PH,Urine 8.0 (5.0-7.0); Protein,Urine Negative (Neg - Trace); RBC,Urine 4 /hpf (0-3); Specific Gravity,Urine 1.025 (1.001-1.035); Squamous Epithelial Cell,Urine 5 /hpf (0-5); Urobilinogen,Urine Negative mg/dL (0.0-1.0); WBC,Urine 1 /hpf (0-5)
[2025-05-26 17:37] LABS: Amphetamine/Methamp Scrn,U Negative (Negative); Barbiturate Screen,Urine Negative (Negative); Benzodiazepines Screen,Urine Negative (Negative); Benzoylecgonine Screen, Ur Negative (Negative); Fentanyl Screen,Urine Negative (Negative); Opiate Screen,Urine Negative (Negative); THC Screen,Urine Negative (Negative)
[2025-05-26 17:50] LABS: HCG Qualitative,Urine Negative
--- NOTE | 2025-05-26 18:12 | PC.NURSE ---
pt visualized in waiting room sitting on chair sleeping
[2025-05-26 18:17] LABS: Alanine Aminotransferase 84 U/L (10-49); Albumin, Serum 4.8 gm/dL (3.5-5.0); Albumin/Globulin Ratio 1.8 (1.2-2.2); Alkaline Phosphatase 99 U/L (46-116); Anion Gap 11 (7-16); Aspartate Amino Transferase 88 U/L (0-34); BUN/Creatinine Ratio 10 Ratio (12-20); Bilirubin,Total 0.5 mg/dL (0.3-1.2); Blood Urea Nitrogen 7 mg/dL (9-23); Calcium 10.1 mg/dL (8.3-10.6); Calcium (Corrected) 10.1 mg/dL (8.5-10.1); Carbon Dioxide 21.6 mMol/L (20.0-31.0); Chloride 107 mMol/L (98-107); Creatinine (Component) 0.7 mg/dL (0.6-1.3); Estimated Creatinine Clearance 114.8 mL/min (>60); Globulin 2.7 gm/dL (2.3-3.5); Glucose 91 mg/dL (74-106); Lipase 32 U/L (12-53); Osmolality,Calculated 277 (275-295); Potassium 3.7 mMol/L (3.4-5.1); Sodium 140 mMol/L (136-145); Total Protein 7.5 gm/dL (5.7-8.2); eGFR > 60 See Note
[2025-05-26 18:20] LABS: Basophils # (Auto) 0.1 Thou/mm3 (0.0-0.2); Basophils % (Auto) 1 % (0-2.5); Eosinophils # (Auto) 0.1 Thou/mm3 (0.0-0.5); Eosinophils % (Auto) 1 % (0-10); Hematocrit 38.0 % (36.0-46.0); Hemoglobin 12.3 g/dL (12.0-16.0); Immature Granulocytes Auto 0.03 Thou/mm3 (0.00-0.00); Lymphocytes # (Auto) 2.4 Thou/mm3 (1.0-4.8); Lymphocytes % (Auto) 25 % (10-50); Mean Corpuscular HGB Conc 32.4 g/dl (31.0-37.0); Mean Corpuscular Hemoglobin 25.7 pg (25.0-35.0); Mean Corpuscular Volume 79 fL (80-100); Monocytes # (Auto) 0.6 Thou/mm3 (0.0-0.8); Monocytes % (Auto) 6 % (0-12); Neutrophils # (Auto) 6.5 Thou/mm3 (1.8-7.7); Neutrophils % (Auto) 68 % (37-80); Nucleated Red Blood Cell # 0.00 Thou/mm3 (0.00-0.00); Nucleated Red Blood Cell % 0 /100 WBC (0); Platelet Count 323 Thou/mm3 (140-440); RDW Standard Deviation 40.2 fL (36.4-46.3); Red Blood Count 4.79 Miln/mm3 (4.00-5.20); White Blood Count 9.6 Thou/mm3 (3.6-11.0)
--- NOTE | 2025-05-26 21:07 | PD.EDABDPN ---
ED Abdominal Pain RME/HPI General Chief Complaint: Abdominal Pain Stated complaint: ABD PAIN Time seen by provider: 05/26/25 16:14 Arrival date/time: 05/26/25 15:50 RME / HPI RME / HPI narrative: 20-year-old female that comes into the emergency room with complaints of abdominal pain. Onset of symptoms few minutes prior to ER's visit, severity of symptoms are moderate, describes crampy. Patient ate half burrito earlier today. Patient has been diagnosed with cholelithiasis. Patient reports nausea no vomiting. Patient reports that she is a type I diabetic. Patient denies any fever or diarrhea. Related Data Home Medications ?Medication ?Instructions ?Recorded ?Confirmed Insulin Aspart * (NOVOLOG *) 18 unit subcut BID #0 units 09/30/14 09/29/19 aspirin 81 mg capsule 81 mg DAILY 09/15/24 09/15/24 [id number] 1 mg 2 tab PO DAILY 09/15/24 09/15/24 tablet Previous Rx's ?Medication ?Instructions ?Recorded bisacodyl 10 mg rectal suppository 10 mg [place] QDAY PRN constipation #3 04/22/25 (Dulcolax (bisacodyl)) ea omeprazole 20 mg capsule,delayed 20 mg PO QDAY #14 caps 04/22/25 release polyethylene glycol 3350 17 gram 17 g PO QDAY #14 ea 04/22/25 oral powder packet (Miralax) dicyclomine 20 mg tablet 20 mg PO QID PRN abdominal pain 05/26/25 #30 tabs ibuprofen 800 mg tablet 800 mg PO Q8H PRN pain #30 tabs 05/26/25 Allergies Allergy/AdvReac Type Severity Reaction Status Date / Time No Known Allergies Allergy Verified 11/11/24 22:05 Review of Systems Review of Systems Narrative Review of Systems: Review of system reviewed and within normal limits except mentioned in HPI ED Exam Narrative Physical exam: VITAL SIGNS: Reviewed. GENERAL APPEARANCE: Alert and interactive, follows commands, no acute distress, HEAD AND FACE: Non-traumatic. ENT: PERRL, pink conjunctivitis, eyelid no trauma, Mucous membrane moist. NECK: Supple, nontender, no nuchal rigidity. CHEST: No tenderness, no crepitus, no paradoxical movement, no retractions. LUNGS: Clear, well ventilated, symmetric, no rales, no wheezing, no ronchi, no stridor, good breath sounds bilaterally. HEART: Regular rate, regular rhythm, no murmur, no gallops. ABDOMEN: Soft, positive bowel sounds, nondistended, no guarding, right upper quadrant tenderness, no rebound, no masses, RECTAL: Deferred. GENITAL: Deferred. NEUROLOGICAL: Gross motor function intact sensory function intact, Appropriate for age. MUSCULOSKELETAL: low back nontender, full range of motion. EXTREMITIES: Nontender, full range of motion. SKIN: Color pink, dry, no rash, no lacerations, no abrasions, no contusions. LYMPHATICS: Deferred. Course Quality Measures none Orders Category Date Time Status US abdomen limited Stat Exams 05/26/25 17:26 Taken CBC Stat Lab 05/26/25 17:34 Completed Comprehensive Metabolic Panel Stat Lab 05/26/25 17:34 Completed Drug Screen,Urine Stat Lab 05/26/25 17:00 Completed HCG Qualitative,Urine Stat Lab 05/26/25 17:00 Completed Lipase Stat Lab 05/26/25 17:34 Completed Urinalysis, C/S if Indicated Stat Lab 05/26/25 17:00 Completed HYDROcodone*/APAP 5/325 [[place] 5/325] Med 05/26/25 16:37 Discontinued 1 tab PO X1 ONE Ondansetron Odt [Zofran Odt] Med 05/26/25 16:37 Discontinued 4 mg PO X1 ONE Vital Signs Vital signs: Vital Signs Temperature 98.7 F 05/26/25 16:09 Pulse Rate 82 05/26/25 16:09 Respiratory Rate 16 05/26/25 16:09 Blood Pressure 105/64 05/26/25 16:09 Pulse Oximetry (%) 100 05/26/25 16:09 Oxygen Delivery Method Room Air 05/26/25 16:09 Abdominal Pain MDM MDM Narrative MDM Narrative:: 20-year-old female that comes into the emergency room with complaints of abdominal pain. Onset of symptoms few minutes prior to ER's visit, severity of symptoms are moderate, describes crampy. Patient ate half burrito earlier today. Patient has been diagnosed with cholelithiasis. Patient reports nausea no vomiting. Patient reports that she is a type I diabetic. Patient denies any fever or diarrhea. Patient CBC showed no leukocytosis CMP unremarkable except for slight AST elevation of 88, ALT of 84, total bili normal. Urinalysis no UTI ultrasound came back unremarkable except for gallstone Patient was advised to use avoid eating fatty, greasy food. She is stable for discharge home. Advised her to follow-up with her surgeon outpatient. Patient data External records reviewed:: None Clinical information provided by:: patient Social determinants that could affect healthcare access:: none Patient has the following chronic illnesses:: Diabetes mellitus, history of gallstone How is presenting disease/condition affected by chronic disease/condition?: exacerbated by Evaluation data The following diagnostics were reviewed and interpreted by me:: lab results and radiology exam(s) Lab and/or radiology exams considered but not ordered:: None Interpretation Summary: See results MDM Medications / Prescriptions Medications or Prescriptions considered but not ordered:: None Medication administrations:: Medication Administration History Discontinued Medications Hydrocodone Bitart/Acetaminophen (Hydrocodone/Apap 5/325 Tablet) 1 tab PO X1 ONE Stop: 05/26/25 16:38 Last Admin: 05/26/25 16:48 Dose: 1 tab Documented By: POOL Ondansetron HCl (Ondansetron Odt 4 Mg Tabrap) 4 mg PO X1 ONE; Protocol Stop: 05/26/25 16:38 Last Admin: 05/26/25 16:48 Dose: 4 mg Documented By: POOL Frye has [facility] Consultations Consultation(s) initiated? (list below): No Diagnosis Differential diagnosis abdominal pain: pancreatitis Most likely diagnosis given after review of the tests above:: Biliary colic, gallstone Admission Indicated Admission indicated?: not indicated Admission Request Was there a request for admission?: No Disposition Plan Disposition Plan: Discharge Discharge Attestation Discharge Attestation: The patient and all family members were given an opportunity to ask questions and understood the discharge instructions. Discharge instructions specifically effects, indications for sooner follow up or return to the emergency department, and the expected course of current diagnosis. Patient condition: Stable Discharge Plan Plan Patient Disposition: HOME (Self Care) Discharge Disposition comment: Stable Prescriptions/Referrals Prescriptions/Med Rec: New dicyclomine 20 mg tablet 20 mg PO QID PRN (Reason: abdominal pain) Qty: 30 0RF ibuprofen 800 mg tablet 800 mg PO Q8H PRN (Reason: pain) Qty: 30 0RF No Action Insulin Aspart * (NOVOLOG *) 100 U/ML cartridge 18 unit Sub-Q BID Qty: 0 1 mg Tablet 2 tab PO DAILY aspirin 81 mg Capsule 81 mg DAILY polyethylene glycol 3350 [Miralax] 17 gram powder in packet 17 g PO QDAY Qty: 14 0RF bisacodyl [Dulcolax (bisacodyl)] 10 mg suppository 10 mg [place] QDAY PRN (Reason: constipation) Qty: 3 0RF omeprazole 20 mg capsule,delayed release(DR/EC) 20 mg PO QDAY Qty: 14 0RF Referrals: No Primary/Family,Physician [Primary Care Provider] - In 1 week Problem List Clinical Impression: Biliary colic, Gallstone Patient/Caregiver Discharge Instructions Discharge Activity: activity as tolerated Education Materials: Treating Gallstones Additional Instructions: Thank you for the opportunity for serving you today. You are stable for discharged . You are advised to: Follow-up with your referral to general surgeon Return to ED for worsening of symptoms Increase oral fluids Take medication as prescribed Please avoid eating fatty, greasy, fried foods. Print Language: Kinyarwanda Stand Alone Forms: [facility] Award Info., Patient Portal Info Letter PA/BETZY Supervising Physician JAVIER/BETZY Supervising Physician: MD Maycol
--- NOTE | 2025-05-26 22:36 | PC.NURSE ---
NO ANSWER FOR DC
--- NOTE | 2025-05-26 22:45 | PC.NURSE ---
NO ANSWER FOR DC
--- NOTE | 2025-05-26 22:59 | PC.NURSE ---
NO ANSWER FOR DC
== END 2025-05-26 22:59 | disposition left against medical advice (07) ==
PROVIDERS: Nurse Practitioner Family; Emergency Provider Family Medicine
DX: K80.70 Calculus of gallbladder and bile duct without cholecystitis without obstruction (principal)
CPT/HCPCS: 36415; 76705; 80053; 80307; 81001; 81025; 83690; 85025; 99283; Q0162; A9270